=== PATIENT | male | born 1985 | race African-American/Black ===

== ENCOUNTER → 2019-07-12 | Emergency (ER) | payer SELFPAY ==
--- NOTE | 2019-07-12 10:20 | UC ---
Lower Extremity/Ankle HPI - HPI Summary HPI Summary: 34 yo male presents with right LEG pain. He tells me that over the last 2-3 days he has noticed right posteromedial thigh pain and cramping. He states that he has a sedentary job and is concerned about a blood clot. His grandfather has issues with bloodclots, but pt has never had one. Siblings and parents have had no issues with clotting. He vapes, but no tobacco use. Denies recent illness, travel, injury, headache, nausea, numbness, SOB, chest pain. Pain not alleviated by anything. Not worse with movement or weight bearing. - History of Current Complaint Chief Complaint: UCLowerExtremity Stated Complaint: LEG PAIN Time Seen by Provider: 07/12/19 10:18 Hx Obtained From: Patient Severity Initially: Mild Severity Currently: Mild Pain Intensity: 3 Pain Scale Used: 0-10 Numeric - Allergies/Home Medications Allergies/Adverse Reactions: Allergies Allergy/AdvReac Type Severity Reaction Status Date / Time No Known Allergies Allergy Verified 07/12/19 10:16 Home Medications: Home Medications NK [No Home Medications Reported] 07/12/19 [History Confirmed 07/12/19] PMH/Surg Hx/FS Hx/Imm Hx - Additional Past Medical History Additional PMH: None - Surgical History Surgical History: None - Family History Known Family History: Positive: None - Social History Occupation: Employed Full-time Lives: With Family Alcohol Use: Daily Substance Use Type: None Smoking Status (MU): Never Smoked Tobacco When Did the Patient Quit Smoking/Using Tobacco: vapes Review of Systems All Other Systems Reviewed And Are Negative: No Constitutional: Positive: Negative Skin: Positive: Negative Respiratory: Positive: Negative Cardiovascular: Positive: Negative Neurovascular: Positive: Negative Musculoskeletal: Positive: Other: - Right leg pain Neurological: Positive: Negative Psychological: Positive: Negative Physical Exam - Summary Physical Exam Summary: GENERAL: NAD. WDWN. No pain distress. SKIN: No rashes, sores, lesions, or open wounds. CHEST: No accessory muscle use. Breathing comfortably and in no distress. CV: Pulses intact popliteal, PT, and DP. Cap refill <2seconds. MSK: RIGHT KNEE: Strength 5/5. No edema or obvious bony deformities. FROM. RIGHT LEG: Soft nttp calf and thigh. No palpable cord, ecchymosis, or erythema. Negative cory sign. NEURO: Alert. Sensations intact and symmetric B/L LEs PSYCH: Age appropriate behavior. Triage Information Reviewed: Yes Vital Signs: Initial Vital Signs Temp 98.6 F 07/12/19 10:12 Pulse 88 07/12/19 10:12 Resp 16 07/12/19 10:12 BP 157/100 07/12/19 10:12 Pulse Ox 100 07/12/19 10:12 Vital Signs Reviewed: Yes Diagnostics - Radiology US right leg Radiology Interpretation Completed By: Radiologist Summary of Radiographic Findings: IMPRESSION: NO RIGHT LOWER EXTREMITY DEEP VEIN THROMBOSIS Lower Extremity Course/Dx - Course Course Of Treatment: US as above. Discussed with pt and reassured to monitor his symptoms and be rechecked if symptoms change. - Differential Dx/Diagnosis Provider Diagnosis: Leg cramp Discharge ED - Sign-Out/Discharge Documenting (check all that apply): Patient Departure All imaging exams completed and their final reports reviewed: Yes - Discharge Plan Condition: Stable Disposition: HOME Patient Education Materials: Leg Pain (ED) Referrals: [facility] [Outside] - As Soon As Possible Additional Instructions: If you develop a fever, shortness of breath, chest pain, new or worsening symptoms - please call your PCP or go to the ED immediately. Your blood pressure was high at todays visit. Please see your primary provider within 4 weeks for recheck and re-evaluation. The ultrasound of your leg was normal today and showed no evidence of a blood clot. Please continue to rest and apply heat to your leg. Recheck if symptoms worsen or change. - Billing Disposition and Condition Condition: STABLE Disposition: Home
== END | disposition home or self-care (01) ==
LOC: UCEAST 10:02
DX: R25.2 Cramp and spasm (principal); M79.604 Pain in right leg
CPT/HCPCS: 99201; G0463